=== PATIENT | male | born 1975 | race Caucasian/White ===

== ENCOUNTER → 2017-09-20 16:06 | Outpatient (CLI) | payer BC ==
[~2017-09-20 16:06] MED LIST: IBUPROFEN400 MG PO; TRAZODONE HCL50 MG PO
[2017-09-20 16:36] LABS: ALBUMIN 3.6 g/dL (3.4-5.0); ALKALINE PHOSPHATASE 55 U/L (46-116); ALT (SGPT) 355 U/L (10-68); CALC OSMOLALITY 278 mosm/kg (275-300); CALCIUM 8.4 mg/dL (8.5-10.1); CARBON DIOXIDE 25.9 mmol/L (21.0-32.0); CHLORIDE - SERUM 101 mmol/L (98-107); GLUCOSE 100 mg/dL (74-106); POTASSIUM - SERUM 3.8 mmol/L (3.5-5.1); PROTEIN - SERUM 7.1 g/dL (6.4-8.2); SODIUM 138 mmol/L (136-145); UREA NITROGEN 21 mg/dL (7-18); eGFR NON AFRICAN AMERICAN 88 mL/min (90-120)
[2017-09-20 16:50] LABS: CREATINE KINASE 42903 UL (21-232)
[2017-09-20 16:53] LABS: CKMB 92.4 U/L (0.0-3.6)
[2017-09-21 17:39] VITALS: BMI 39.6
[2017-09-22 03:13] LABS: MYOGLOBIN - SERUM 1254 ng/mL (28-72)
[2017-09-22 13:17] LABS: MYOGLOBIN - URINE 8 ng/mL (0-13)
== END | disposition home or self-care (01) ==
LOC: D.LAB 16:06
PROVIDERS: Orthopaedic Surgery Foot and Ankle Surgery
DX: M25.512 Pain in left shoulder (principal)

== ENCOUNTER 2017-09-20 17:12 | Inpatient (IN) | payer BC ==
[~2017-09-20] VITALS: Ht 172.7 cm; Wt 118.2 kg
[2017-09-21] MEDS ORDERED: TRAZODONE HCL50 MG PO (00:52)
[2017-09-21] MEDS ORDERED: IBUPROFEN400 MG PO (00:53)
[2017-09-21 03:29] VITALS: BP 142/93; BMI 39.6
[2017-09-21 04:00] VITALS: BP 136/83
[2017-09-21 06:21] LABS: CALC OSMOLALITY 278 mosm/kg (275-300); CALCIUM 8.2 mg/dL (8.5-10.1); CHLORIDE - SERUM 104 mmol/L (98-107); CREATININE - SERUM 0.9 mg/dL (0.6-1.3); GLUCOSE 110 mg/dL (74-106); POTASSIUM - SERUM 3.9 mmol/L (3.5-5.1); SODIUM 139 mmol/L (136-145); eGFR NON AFRICAN AMERICAN > 90 mL/min (90-120)
[2017-09-21 06:25] LABS: UREA NITROGEN 13 mg/dL (7-18)
[2017-09-21 08:55] VITALS: BP 134/86
[2017-09-21 13:05] VITALS: BP 134/75
[2017-09-21 16:00] VITALS: BP 135/79
[2017-09-21 17:39] VITALS: Ht 172.7 cm; Wt 118.2 kg
[2017-09-21 20:00] VITALS: BP 152/81
[2017-09-22] VITALS: BP 157/84
[2017-09-22 04:00] VITALS: BP 131/65
[2017-09-22 06:21] LABS: BASOPHILS 0.4 % (0-2); EOSINOPHILS 1.6 % (0-7); HEMATOCRIT 44.9 % (42.0-54.0); HEMOGLOBIN 15.2 g/dL (13.5-17.5); IMMATURE GRANULOCYTES 0.3 % (0-5); LYMPHOCYTES 34.2 % (15-50); MCH 31.3 pg (26.0-34.0); MCHC 33.9 g/dL (31.0-37.0); MCV 92.6 fL (80.0-100.0); MEAN PLATELET VOLUME 10.7 fL (7.4-10.4); NEUTROPHILS 56.5 % (40-80); PLATELET COUNT 178 10x3/uL (130-400); RBC 4.85 10x6/uL (4.20-6.10); RDW 12.8 % (11.5-14.5)
[2017-09-22 06:22] LABS: ALKALINE PHOSPHATASE 39 U/L (46-116); CALC OSMOLALITY 276 mosm/kg (275-300); CALCIUM 8.1 mg/dL (8.5-10.1); CARBON DIOXIDE 25.1 mmol/L (21.0-32.0); CHLORIDE - SERUM 105 mmol/L (98-107); CREATININE - SERUM 0.9 mg/dL (0.6-1.3); GLUCOSE 104 mg/dL (74-106); POTASSIUM - SERUM 3.9 mmol/L (3.5-5.1); PROTEIN - SERUM 5.4 g/dL (6.4-8.2); SODIUM 139 mmol/L (136-145); UREA NITROGEN 11 mg/dL (7-18); eGFR NON AFRICAN AMERICAN > 90 mL/min (90-120)
[2017-09-22 06:25] LABS: ALBUMIN 2.5 g/dL (3.4-5.0); ALT (SGPT) 212 U/L (10-68)
[2017-09-22 08:49] VITALS: BP 154/89
[2017-09-22 10:03] LABS: CKMB 8.5 U/L (0.0-3.6)
[2017-09-22 10:04] LABS: CREATINE KINASE 10801 UL (21-232)
[2017-09-22 12:56] VITALS: BP 141/84
[2017-09-22 16:23] VITALS: BP 111/77
[2017-09-22 20:00] VITALS: BP 157/91
[2017-09-23] VITALS: BP 159/81
[2017-09-23 04:00] VITALS: BP 168/85
[2017-09-23 06:30] LABS: BASOPHILS 0.4 % (0-2); EOSINOPHILS 2.4 % (0-7); HEMATOCRIT 43.9 % (42.0-54.0); IMMATURE GRANULOCYTES 0.1 % (0-5); LYMPHOCYTES 30.8 % (15-50); MCH 31.6 pg (26.0-34.0); MCHC 34.2 g/dL (31.0-37.0); MCV 92.6 fL (80.0-100.0); MEAN PLATELET VOLUME 10.2 fL (7.4-10.4); MONOCYTES 7.6 % (2-11); NEUTROPHILS 58.7 % (40-80); PLATELET COUNT 188 10x3/uL (130-400); RBC 4.74 10x6/uL (4.20-6.10); RDW 12.8 % (11.5-14.5); WBC 7.5 10x3/uL (4.8-10.8)
[2017-09-23 06:42] LABS: ALBUMIN 2.9 g/dL (3.4-5.0); ALKALINE PHOSPHATASE 47 U/L (46-116); ALT (SGPT) 199 U/L (10-68); BILIRUBIN - TOTAL 0.31 mg/dL (0.2-1.3); CALCIUM 8.3 mg/dL (8.5-10.1); CARBON DIOXIDE 28.6 mmol/L (21.0-32.0); CHLORIDE - SERUM 102 mmol/L (98-107); CREATININE - SERUM 1.1 mg/dL (0.6-1.3); GLUCOSE 110 mg/dL (74-106); POTASSIUM - SERUM 3.8 mmol/L (3.5-5.1); SODIUM 138 mmol/L (136-145); eGFR NON AFRICAN AMERICAN 79 mL/min (90-120)
[2017-09-23 06:51] LABS: CALC OSMOLALITY 277 mosm/kg (275-300); UREA NITROGEN 15 mg/dL (7-18)
[2017-09-23 07:58] VITALS: BP 130/79
[2017-09-23 12:17] VITALS: BP 131/71
[2017-09-23 14:13] LABS: CKMB 4.5 U/L (0.0-3.6); CREATINE KINASE 6842 UL (21-232)
[2017-09-23 16:08] VITALS: BP 135/75
== END 2017-09-23 18:34 | disposition home or self-care (01) | DRG 558 ==
LOC: D.ER 17:12 → D.SDCHOLD 17:46 → D.MS 17:46
PROVIDERS: Family Medicine; Orthopaedic Surgery Foot and Ankle Surgery
DX: M62.82 Rhabdomyolysis (principal); T79.A12A Traumatic compartment syndrome of left upper extremity, initial encounter; X58.XXXA Exposure to other specified factors, initial encounter; F19.10 Other psychoactive substance abuse, uncomplicated; Z72.89 Other problems related to lifestyle; R60.9 Edema, unspecified; R06.01 Orthopnea